=== PATIENT | female | born 1985 | race Caucasian/White ===

== ENCOUNTER 2018-02-24 20:26 | Inpatient (IN) | payer BC ==
[2018-02-24] MEDS: ONDANSETRON 4 MG INJ IV (22:09)
[2018-02-24] MEDS: HYDROCODONE/APAP (5/325) TAB PO (22:09)
[2018-02-25] MEDS ORDERED: NACL 0.9% 3 ML SYG IV
[2018-02-25] MEDS ORDERED: ONDANSETRON 4 MG INJ IV
[2018-02-25] MEDS: DEXTROSE 5%-0.45% NACL 1,000 ML IV ×3 (01:03→21:52)
[2018-02-25] MEDS ORDERED: PANTOPRAZOLE (EC) 40 MG TAB PO (06:00)
[2018-02-25] MEDS: FAMOTIDINE 20 MG INJ IV ×2 (08:06→20:58)
[2018-02-25 11:51] LABS: ADD MAN DIFF? NO
[2018-02-25 11:56] LABS: WHITE BLOOD COUNT 9.6 10^3/ul (4.8-10.8)
[2018-02-25 11:56] LABS: BASOPHILS % 0.3 % (0.0-2.0); EOSINOPHILS # 0.1 10^3/ul (0.0-0.5); HEMATOCRIT 36.8 % (37.0-47.0); HEMOGLOBIN 11.8 g/dl (12.0-16.0); LYMPHOCYTES # 2.5 10^3/ul (0.8-2.9); LYMPHOCYTES % 25.9 % (15.0-51.0); MEAN CORPUSCULAR HEMOGLOBIN 27.1 pg (29.0-33.0); MEAN CORPUSCULAR HGB CONC 32.1 g/dl (32.0-37.0); MEAN CORPUSCULAR VOLUME 84.6 fl (82.0-101.0); MEAN PLATELET VOLUME 9.8 fl (7.4-10.4); MONOCYTE # 0.9 10^3/ul (0.3-0.9); MONOCYTES % 9.1 % (0.0-11.0); NEUTROPHIL # 6.1 10^3/ul (1.6-7.5); NEUTROPHILS % 63.4 % (39.0-77.0); PLATELET COUNT 336 10^3/UL (140-415); RED BLOOD COUNT 4.35 10^6/ul (4.20-5.40); RED CELL DISTRIBUTION WIDTH 14.5 % (11.5-14.5)
[2018-02-25 12:17] LABS: ALANINE AMINOTRANSFERASE 147 IU/L (13-69); ALBUMIN 3.7 g/dl (3.3-4.9); ALBUMIN/GLOBULIN RATIO 1.37; ALKALINE PHOSPHATASE 104 IU/L (42-121); ANION GAP 8 (5-13); ASPARTATE AMINO TRANSFERASE 89 IU/L (15-46); BILIRUBIN,INDIRECT 0.6 mg/dl (0-1.1); BILIRUBIN,TOTAL 0.6 mg/dl (0.2-1.3); BLOOD UREA NITROGEN 8 mg/dl (7-20); CALCIUM 8.2 mg/dl (8.4-10.2); CARBON DIOXIDE 29 mmol/L (21-31); CHLORIDE 103 mmol/L (97-110); CREATININE 0.62 mg/dl (0.44-1.00); Estimated GFR > 60 mL/min (>60); GLUCOSE 112 mg/dl (70-220); POTASSIUM 3.7 mmol/L (3.5-5.1); SODIUM 140 mmol/L (135-144); TOTAL PROTEIN 6.4 g/dl (6.1-8.1)
[2018-02-26] MEDS: DEXTROSE 5%-0.45% NACL 1,000 ML IV ×2 (05:32→17:03)
[2018-02-26 07:32] LABS: ADD MAN DIFF? NO
[2018-02-26 07:36] LABS: BASOPHILS % 0.5 % (0.0-2.0); EOSINOPHILS # 0.1 10^3/ul (0.0-0.5); EOSINOPHILS % 1.6 % (0.0-7.0); HEMATOCRIT 36.1 % (37.0-47.0); HEMOGLOBIN 11.3 g/dl (12.0-16.0); LYMPHOCYTES # 2.9 10^3/ul (0.8-2.9); MEAN CORPUSCULAR HEMOGLOBIN 26.7 pg (29.0-33.0); MEAN CORPUSCULAR HGB CONC 31.3 g/dl (32.0-37.0); MEAN CORPUSCULAR VOLUME 85.1 fl (82.0-101.0); MONOCYTE # 0.8 10^3/ul (0.3-0.9); MONOCYTES % 8.9 % (0.0-11.0); NEUTROPHIL # 4.9 10^3/ul (1.6-7.5); NEUTROPHILS % 55.8 % (39.0-77.0); PLATELET COUNT 324 10^3/UL (140-415); RED BLOOD COUNT 4.24 10^6/ul (4.20-5.40); RED CELL DISTRIBUTION WIDTH 14.6 % (11.5-14.5)
[2018-02-26 07:36] LABS: WHITE BLOOD COUNT 8.8 10^3/ul (4.8-10.8)
[2018-02-26 07:52] LABS: PHOSPHORUS 4.3 mg/dl (2.5-4.9)
[2018-02-26 07:52] LABS: MAGNESIUM 2.1 mg/dl (1.7-2.5)
[2018-02-26 07:53] LABS: INR 0.98; PROTIME 13.1 Sec (11.9-14.9)
[2018-02-26 07:53] LABS: LIPASE 243 U/L (23-300)
[2018-02-26 07:54] LABS: PARTIAL THROMBOPLASTIN TIME 27.5 Sec (23.0-35.0)
[2018-02-26] MEDS: FAMOTIDINE 20 MG INJ IV ×2 (08:13→21:05)
[2018-02-26 08:23] LABS: ALANINE AMINOTRANSFERASE 122 IU/L (13-69); ALBUMIN 3.5 g/dl (3.3-4.9); ALKALINE PHOSPHATASE 101 IU/L (42-121); ANION GAP 8 (5-13); ASPARTATE AMINO TRANSFERASE 66 IU/L (15-46); BILIRUBIN,INDIRECT 0.5 mg/dl (0-1.1); BILIRUBIN,TOTAL 0.5 mg/dl (0.2-1.3); BLOOD UREA NITROGEN 4 mg/dl (7-20); CALCIUM 8.7 mg/dl (8.4-10.2); CARBON DIOXIDE 29 mmol/L (21-31); CHLORIDE 106 mmol/L (97-110); CREATININE 0.68 mg/dl (0.44-1.00); Estimated GFR > 60 mL/min (>60); GLUCOSE 117 mg/dl (70-220); POTASSIUM 4.2 mmol/L (3.5-5.1); SODIUM 143 mmol/L (135-144); TOTAL PROTEIN 6.4 g/dl (6.1-8.1)
[2018-02-26] MEDS ORDERED: FENTAnyl 50 MCG/ML VIAL IV ×2 (09:30)
[2018-02-26] MEDS ORDERED: HYDROmorphONE 1 MG/5 ML IV SYRINGE IV (09:30)
[2018-02-26] MEDS ORDERED: ALBUTEROL 0.083% (NEB) 2.5 MG/3 ML AMP HHN (09:30)
[2018-02-26] MEDS ORDERED: DIPHENHYDRAMINE 50 MG INJ IV (09:30)
[2018-02-26] MEDS ORDERED: METOCLOPRAMIDE 10 MG INJ IV (09:30)
[2018-02-26] MEDS ORDERED: ROPIVACAINE 0.5 % 30 ML VIAL (09:52)
[2018-02-26] MEDS ORDERED: FENTAnyl 50 MCG/ML VIAL (09:52)
[2018-02-26] MEDS ORDERED: BUPIVACAINE 0.25%/EPI (SDV) 10 ML INJ (10:17)
[2018-02-26] MEDS ORDERED: LIDOCAINE 100 MG SYRINGE (10:40)
[2018-02-26] MEDS ORDERED: CEFAZOLIN 1 GM INJ (10:40)
[2018-02-26] MEDS ORDERED: SUGAMMADEX SODIUM 200 MG/2 ML VIAL IV (10:40)
[2018-02-26] MEDS ORDERED: PROPOFOL 20 ML (10:40)
[2018-02-26] MEDS ORDERED: ROCURONIUM 50 MG INJ (10:40)
[2018-02-26] MEDS ORDERED: SUCCINYLCHOLINE CHLORIDE 100 MG/5 ML SYG IV (10:40)
[2018-02-26] MEDS ORDERED: OXYCODONE/ACETAMINOPHEN (5/325) TAB PO (11:00)
[2018-02-26] MEDS ORDERED: morphine 2 MG INJ IV (11:00)
[2018-02-26] MEDS ORDERED: ONDANSETRON 4 MG INJ IV (11:00)
[2018-02-26] MEDS: MEPERIDINE 25 MG INJ IV ×2 (11:08→12:09)
[2018-02-26] MEDS: HYDROmorphONE 1 MG/5 ML IV SYRINGE IV ×3 (11:13→11:28)
[2018-02-26] MEDS: ONDANSETRON 4 MG INJ IV (11:14)
[2018-02-26] MEDS: morphine 2 MG INJ IV (12:45)
[2018-02-26] MEDS: HYDROCODONE/APAP (5/325) TAB PO ×2 (17:09→21:04)
[2018-02-27] MEDS: OXYCODONE/ACETAMINOPHEN (5/325) TAB PO (00:28)
[2018-02-27] MEDS: DEXTROSE 5%-0.45% NACL 1,000 ML IV ×2 (04:00→12:36)
[2018-02-27] MEDS: FAMOTIDINE 20 MG INJ IV (08:37)
[2018-02-27 08:47] LABS: ADD MAN DIFF? NO
[2018-02-27 08:54] LABS: BASOPHILS % 0.1 % (0.0-2.0); HEMATOCRIT 35.6 % (37.0-47.0); HEMOGLOBIN 11.5 g/dl (12.0-16.0); LYMPHOCYTES # 1.6 10^3/ul (0.8-2.9); LYMPHOCYTES % 10.5 % (15.0-51.0); MEAN CORPUSCULAR HEMOGLOBIN 26.8 pg (29.0-33.0); MEAN CORPUSCULAR HGB CONC 32.3 g/dl (32.0-37.0); MEAN PLATELET VOLUME 10.5 fl (7.4-10.4); MONOCYTE # 1.2 10^3/ul (0.3-0.9); MONOCYTES % 7.7 % (0.0-11.0); NEUTROPHIL # 12.3 10^3/ul (1.6-7.5); NEUTROPHILS % 81.2 % (39.0-77.0); PLATELET COUNT 325 10^3/UL (140-415); RED BLOOD COUNT 4.29 10^6/ul (4.20-5.40); RED CELL DISTRIBUTION WIDTH 14.4 % (11.5-14.5)
[2018-02-27 08:54] LABS: WHITE BLOOD COUNT 15.1 10^3/ul (4.8-10.8)
[2018-02-27 09:09] LABS: MAGNESIUM 1.9 mg/dl (1.7-2.5)
[2018-02-27 09:09] LABS: PHOSPHORUS 3.3 mg/dl (2.5-4.9)
[2018-02-27 09:19] LABS: ALANINE AMINOTRANSFERASE 285 IU/L (13-69); ALBUMIN 3.6 g/dl (3.3-4.9); ALBUMIN/GLOBULIN RATIO 1.16; ALKALINE PHOSPHATASE 146 IU/L (42-121); ANION GAP 11 (5-13); ASPARTATE AMINO TRANSFERASE 261 IU/L (15-46); BILIRUBIN,TOTAL 1.3 mg/dl (0.2-1.3); BLOOD UREA NITROGEN < 2 mg/dl (7-20); CALCIUM 8.5 mg/dl (8.4-10.2); CARBON DIOXIDE 27 mmol/L (21-31); CHLORIDE 103 mmol/L (97-110); CREATININE 0.53 mg/dl (0.44-1.00); Estimated GFR > 60 mL/min (>60); GLUCOSE 143 mg/dl (70-220); POTASSIUM 3.2 mmol/L (3.5-5.1); SODIUM 141 mmol/L (135-144); TOTAL PROTEIN 6.7 g/dl (6.1-8.1)
[2018-02-27] MEDS: POTASSIUM CHLORIDE (SR) 20 MEQ TAB PO (10:34)
== END 2018-02-27 16:40 | disposition home or self-care (01) | DRG 419 ==
LOC: 2NE 20:26
PROC: 0FT44ZZ Resection of Gallbladder, Percutaneous Endoscopic Approach (ICD-10-PCS; principal; 2018-02-26 09:30)
DX: K80.00 Calculus of gallbladder with acute cholecystitis without obstruction (principal); Z68.37 Body mass index [BMI] 37.0-37.9, adult; K21.9 Gastro-esophageal reflux disease without esophagitis; E78.5 Hyperlipidemia, unspecified; E66.01 Morbid (severe) obesity due to excess calories
CPT/HCPCS: 80053; 83690; 83735; 84100; 85025; 85610; 85730; 88304